=== PATIENT | female | born 1950 | race Caucasian/White ===

== ENCOUNTER 2017-05-25 13:02 | Observation (INO) | payer MEDICARE, MEDICAID ==
[~2017-05-25] VITALS: Ht 167.6 cm; Wt 67.0 kg
[2017-05-25] MEDS ORDERED: LEVOTHYROXIN100 MCG PO (13:24)
[2017-05-25 13:47] LABS: HEMATOCRIT 38.9 % (37.0-47.0); HEMOGLOBIN 12.7 g/dl (12.0-16.0); IMMATURE GRANULOCYTES 0.3 % (0.0-1.0); MEAN CELL VOLUME 91.3 fL CALC (80.0-100.0); MEAN CORPUSCULAR HGB 29.8 pG CALC (26.0-32.0); MEAN CORPUSCULAR HGB CONC 32.6 g/L CALC (32.0-36.0); NEUT# 5.35 thou/uL (2.00-7.15); RED BLOOD COUNT 4.26 mill/uL (4.20-5.60); RED CELL DISTRI WIDTH 12.6 % (11.5-15.5)
[2017-05-25 13:58] LABS: ANION GAP 14 (6-22 (CALC)); BUN 12 mg/dL (8-23); BUN/CREATININE RATIO 15 (12-20 (CALC)); CARBON DIOXIDE 26 mmol/l (22-30); CHLORIDE 106 mmol/l (95-108); CREATININE 0.8 mg/dL (0.5-1.0); GFR > 60 ML/MIN (>=60 (CALC)); GFR FOR AFR.AMER. > 60 ML/MIN (>=60 (CALC)); POTASSIUM 4.2 mmol/l (3.5-5.1); SODIUM 143 mmol/l (137-146)
[2017-05-25 15:32] VITALS: BP 141/56
[2017-05-25 16:11] LABS: URINE BILIRUBIN - DIPSTICK NEGATIVE (NEGATIVE); URINE BLOOD DIPSTICK SMALL (NEGATIVE); URINE COLOR YELLOW; URINE GLUCOSE - DIPSTICK NEGATIVE (NEGATIVE); URINE KETONE NEGATIVE (NEGATIVE); URINE LEUK ESTERASE TRACE (NEGATIVE); URINE NITRITE - DIPSTICK NEGATIVE (Negative); URINE PROTEIN - DIPSTICK NEGATIVE (NEG-TRACE); URINE UROBILINOGEN - DIPSTICK 0.2 E.U./dL (0.2)
[2017-05-25 16:12] LABS: URINE CLARITY CLEAR
[2017-05-25 16:52] LABS: URINE RBC 0-2 RBC/hpf (0-5); URINE SQUAMOUS EPITHELIAL CELL FEW EPI/hpf (0-FEW)
[2017-05-25 19:05] VITALS: BP 110/62
[2017-05-26] VITALS: BP 127/71
[2017-05-26 04:00] VITALS: BP 121/52
[2017-05-26 05:11] LABS: HEMATOCRIT 39.8 % (37.0-47.0); HEMOGLOBIN 13.2 g/dl (12.0-16.0); MEAN CELL VOLUME 90.7 fL CALC (80.0-100.0); MEAN CORPUSCULAR HGB 30.1 pG CALC (26.0-32.0); MEAN CORPUSCULAR HGB CONC 33.2 g/L CALC (32.0-36.0); RED BLOOD COUNT 4.39 mill/uL (4.20-5.60); RED CELL DISTRI WIDTH 12.4 % (11.5-15.5)
[2017-05-26 05:25] LABS: CHOLESTEROL HDL RATIO 4.7 (<4.4 (CALC))
[2017-05-26 07:35] VITALS: BP 120/55
[2017-05-26 12:03] VITALS: BP 117/69
[2017-05-26] MEDS ORDERED: PEPCID20 MG PO (12:09)
[2017-05-26] MEDS ORDERED: ASPIRIN ADULT L81 M2 PO (12:09)
== END 2017-05-26 13:51 | disposition home or self-care (01) ==
LOC: ED 13:02 → ED-I 14:08 → ED 14:32 → MS2 14:33
PROVIDERS: Family Medicine; ADMIT Internal Medicine; ATTEND Internal Medicine
DX: R07.89 Other chest pain (principal); E03.9 Hypothyroidism, unspecified; M19.90 Unspecified osteoarthritis, unspecified site; K21.9 Gastro-esophageal reflux disease without esophagitis; Z87.891 Personal history of nicotine dependence; Z80.3 Family history of malignant neoplasm of breast

== ENCOUNTER 2017-09-05 15:32 | Emergency (ER) | payer MEDICARE, MEDICAID ==
[~2017-09-05] VITALS: Ht 167.6 cm; Wt 67.0 kg
[~2017-09-05 15:32] MED LIST: ASPIRIN ADULT L81 M2 PO; LEVOTHYROXIN100 MCG PO; PEPCID20 MG PO
[2017-09-05] MEDS ORDERED: VISTARIL 50MG C50 M1 PO (16:46)
[2017-09-05] MEDS ORDERED: ATIVAN1 MG PO (16:46)
[2017-09-05 16:59] VITALS: BP 154/79
== END 2017-09-05 17:00 | disposition home or self-care (01) ==
LOC: ED 15:32
DX: F41.9 Anxiety disorder, unspecified (principal); E03.9 Hypothyroidism, unspecified; F17.210 Nicotine dependence, cigarettes, uncomplicated

== ENCOUNTER 2018-02-12 10:21 | Emergency (ER) | payer MEDICARE, MEDICAID ==
[~2018-02-12] VITALS: Ht 167.6 cm; Wt 65.0 kg
[~2018-02-12 10:21] MED LIST changes: +ATIVAN1 MG PO; +VISTARIL 50MG C50 M1 PO
[2018-02-12] MEDS ORDERED: AMOXICILLIN500 M2 PO (10:54)
[2018-02-12] MEDS ORDERED: MEDDOSEPAK PO (10:54)
[2018-02-12] MEDS ORDERED: CORTISPORIN OTI10 ML AD (10:54)
[2018-02-12 11:10] VITALS: BP 166/75
== END 2018-02-12 11:10 | disposition home or self-care (01) ==
LOC: ED 10:21
DX: L30.9 Dermatitis, unspecified (principal); H92.02 Otalgia, left ear; L93.0 Discoid lupus erythematosus; L29.9 Pruritus, unspecified; F17.210 Nicotine dependence, cigarettes, uncomplicated

== ENCOUNTER 2018-03-02 10:42 | Emergency (ER) | payer MEDICARE, MEDICAID ==
[~2018-03-02] VITALS: Ht 167.6 cm; Wt 70.0 kg
[~2018-03-02 10:42] MED LIST changes: +AMOXICILLIN500 M2 PO; +CORTISPORIN OTI10 ML AD; +MEDDOSEPAK PO
[2018-03-02 11:07] LABS: HEMATOCRIT 43.7 % (37.0-47.0); HEMOGLOBIN 14.7 g/dl (12.0-16.0); IMMATURE GRANULOCYTES 0.4 % (0.0-5.0); MEAN CELL VOLUME 89.9 fL CALC (80.0-100.0); MEAN CORPUSCULAR HGB 30.2 pG CALC (26.0-32.0); MEAN CORPUSCULAR HGB CONC 33.6 g/L CALC (32.0-36.0); NEUT# 6.54 thou/uL (2.00-7.15); RED BLOOD COUNT 4.86 mill/uL (4.20-5.60); RED CELL DISTRI WIDTH 12.6 % (11.5-15.5)
[2018-03-02 11:22] LABS: ALBUMIN 4.5 g/dL (3.2-5.0); ALKALINE PHOSPHATASE 118 u/l (38-126); ANION GAP 17 (6-22 (CALC)); BILIRUBIN, TOTAL 0.5 mg/dL (0.0-1.4); BUN 14 mg/dL (8-23); BUN/CREATININE RATIO 19 (12-20 (CALC)); CARBON DIOXIDE 24 mmol/l (22-30); CHLORIDE 104 mmol/l (95-108); CREATININE 0.7 mg/dL (0.5-1.0); GFR > 60 ML/MIN (>=60 (CALC)); GFR FOR AFR.AMER. > 60 ML/MIN (>=60 (CALC)); POTASSIUM 4.1 mmol/l (3.5-5.1); SGOT/AST 19 u/l (9-36); SODIUM 141 mmol/l (137-146); TOTAL PROTEIN 7.7 g/dL (6.3-8.2)
[2018-03-02 12:55] VITALS: BP 124/57
== END 2018-03-02 12:27 | disposition short-term general hospital (02) ==
LOC: ED 10:42
PROVIDERS: Family Medicine
DX: I60.9 Nontraumatic subarachnoid hemorrhage, unspecified (principal); E03.9 Hypothyroidism, unspecified; M32.9 Systemic lupus erythematosus, unspecified; F17.200 Nicotine dependence, unspecified, uncomplicated

== ENCOUNTER 2018-04-27 10:40 | Emergency (ER) | payer MEDICARE, MEDICAID ==
[~2018-04-27] VITALS: Ht 167.6 cm; Wt 82.0 kg
[2018-04-27] MEDS ORDERED: MIRTAZAPINE7.5 MG PO (11:04)
[2018-04-27] MEDS ORDERED: VALIUM2 MG PO (11:05)
[2018-04-27 12:13] LABS: HEMATOCRIT 41.7 % (37.0-47.0); HEMOGLOBIN 13.6 g/dl (12.0-16.0); IMMATURE GRANULOCYTES 0.4 % (0.0-5.0); MEAN CELL VOLUME 90.1 fL CALC (80.0-100.0); MEAN CORPUSCULAR HGB 29.4 pG CALC (26.0-32.0); MEAN CORPUSCULAR HGB CONC 32.6 g/L CALC (32.0-36.0); NEUT# 4.19 thou/uL (2.00-7.15); RED BLOOD COUNT 4.63 mill/uL (4.20-5.60); RED CELL DISTRI WIDTH 12.3 % (11.5-15.5)
[2018-04-27 12:36] LABS: ALBUMIN 4.4 g/dL (3.2-5.0); ALKALINE PHOSPHATASE 102 u/l (38-126); ANION GAP 14 (6-22 (CALC)); BILIRUBIN, TOTAL 0.8 mg/dL (0.0-1.4); BUN 13 mg/dL (8-23); BUN/CREATININE RATIO 20 (12-20 (CALC)); CARBON DIOXIDE 26 mmol/l (22-30); CHLORIDE 103 mmol/l (95-108); CPK 79 u/l (30-165); CREATININE 0.7 mg/dL (0.5-1.0); GFR > 60 ML/MIN (>=60 (CALC)); GFR FOR AFR.AMER. > 60 ML/MIN (>=60 (CALC)); POTASSIUM 4.5 mmol/l (3.5-5.1); SODIUM 138 mmol/l (137-146); TOTAL PROTEIN 7.9 g/dL (6.3-8.2)
[2018-04-27 12:39] LABS: SGOT/AST 47 u/l (9-36)
[2018-04-27 12:52] LABS: URINE BILIRUBIN - DIPSTICK NEGATIVE (NEGATIVE); URINE BLOOD DIPSTICK TRACE-INTACT (NEGATIVE); URINE COLOR YELLOW; URINE GLUCOSE - DIPSTICK NEGATIVE (NEGATIVE); URINE KETONE NEGATIVE (NEGATIVE); URINE LEUK ESTERASE NEGATIVE (NEGATIVE); URINE NITRITE - DIPSTICK NEGATIVE (Negative); URINE PROTEIN - DIPSTICK NEGATIVE (NEG-TRACE); URINE SPECIFIC GRAVITY 1.015
[2018-04-27] MEDS ORDERED: STERAPRED DS10 MG PO (13:40)
[2018-04-27 14:02] VITALS: BP 140/70
== END 2018-04-27 14:02 | disposition home or self-care (01) ==
LOC: ED 10:40
PROVIDERS: Family Medicine
DX: M32.9 Systemic lupus erythematosus, unspecified (principal); E03.9 Hypothyroidism, unspecified; M19.90 Unspecified osteoarthritis, unspecified site

== ENCOUNTER 2018-10-17 13:43 | Observation (INO) | payer MEDICARE, MEDICAID ==
[~2018-10-17] VITALS: Ht 167.6 cm; Wt 72.7 kg
[~2018-10-17 13:43] MED LIST changes: +MIRTAZAPINE7.5 MG PO; +STERAPRED DS10 MG PO; +VALIUM2 MG PO
[2018-10-17] MEDS ORDERED: NORVASC2.5 M1 PO (14:14)
[2018-10-17 14:34] LABS: HEMATOCRIT 41.4 % (37.0-47.0); HEMOGLOBIN 13.8 g/dl (12.0-16.0); IMMATURE GRANULOCYTES 0.3 % (0.0-5.0); MEAN CELL VOLUME 87.5 fL CALC (80.0-100.0); MEAN CORPUSCULAR HGB 29.2 pG CALC (26.0-32.0); MEAN CORPUSCULAR HGB CONC 33.3 g/L CALC (32.0-36.0); NEUT# 5.57 thou/uL (2.00-7.15); RED BLOOD COUNT 4.73 mill/uL (4.20-5.60); RED CELL DISTRI WIDTH 12.8 % (11.5-15.5)
[2018-10-17 14:42] LABS: ALBUMIN 4.3 g/dL (3.2-5.0); ALKALINE PHOSPHATASE 124 u/l (38-126); ANION GAP 13 (6-22 (CALC)); BILIRUBIN, TOTAL 0.5 mg/dL (0.0-1.4); BUN 14 mg/dL (8-23); BUN/CREATININE RATIO 18 (12-20 (CALC)); CARBON DIOXIDE 26 mmol/l (22-30); CHLORIDE 105 mmol/l (95-108); CREATININE 0.8 mg/dL (0.5-1.0); GFR > 60 ML/MIN (>=60 (CALC)); GFR FOR AFR.AMER. > 60 ML/MIN (>=60 (CALC)); POTASSIUM 3.7 mmol/l (3.5-5.1); SGOT/AST 24 u/l (9-36); SODIUM 140 mmol/l (137-146); TOTAL PROTEIN 7.8 g/dL (6.3-8.2)
[2018-10-17 18:20] VITALS: BP 150/58
[2018-10-17 19:59] VITALS: BP 126/64
[2018-10-18] VITALS: BP 111/54
[2018-10-18 04:30] VITALS: BP 136/74
[2018-10-18 06:24] LABS: CHOLESTEROL HDL RATIO 4.9 (<4.4 (CALC))
[2018-10-18 08:32] VITALS: BP 151/62
[2018-10-18] MEDS ORDERED: AMLODIPINE BESYL5 MG PO (11:14)
[2018-10-18] MEDS ORDERED: ZOFRAN4 MG/TAB PO (11:16)
[2018-10-18 11:40] VITALS: BP 159/71
== END 2018-10-18 12:43 | disposition home or self-care (01) ==
LOC: ED 13:43 → ED-I 14:54 → ED 15:10 → MS2 15:11
PROVIDERS: Emergency Medicine; ADMIT Internal Medicine; ATTEND Internal Medicine
DX: I10 Essential (primary) hypertension (principal); E03.9 Hypothyroidism, unspecified; M19.90 Unspecified osteoarthritis, unspecified site; K21.9 Gastro-esophageal reflux disease without esophagitis; F17.200 Nicotine dependence, unspecified, uncomplicated; Z86.79 Personal history of other diseases of the circulatory system; R07.9 Chest pain, unspecified

== ENCOUNTER 2019-03-16 15:22 | Emergency (ER) | payer MEDICARE, MEDICAID ==
[~2019-03-16 15:22] MED LIST changes: +AMLODIPINE BESYL5 MG PO; +NORVASC2.5 M1 PO; +ZOFRAN4 MG/TAB PO
[2019-03-17] MEDS ORDERED: BACTRIM DS1 TAB PO (00:54)
== END 2019-03-16 16:07 | disposition left against medical advice (07) ==
LOC: ED 15:22 → LWOBS 16:07 → ED 16:07
DX: Z91.19 Patient's noncompliance with other medical treatment and regimen (principal)

== ENCOUNTER 2019-03-16 20:18 | Emergency (ER) | payer MEDICARE, MEDICAID ==
[~2019-03-16] VITALS: Ht 167.6 cm; Wt 73.0 kg
[2019-03-16 22:44] LABS: URINE BLOOD DIPSTICK MODERATE (NEGATIVE); URINE COLOR YELLOW; URINE GLUCOSE - DIPSTICK NEGATIVE (NEGATIVE); URINE KETONE TRACE mg/dL (NEGATIVE); URINE PH 5.5 (4.5-8.0); URINE PROTEIN - DIPSTICK NEGATIVE (NEG-TRACE); URINE SPECIFIC GRAVITY 1.025
[2019-03-16 22:44] LABS: HEMATOCRIT 38.1 % (37.0-47.0); HEMOGLOBIN 12.8 g/dl (12.0-16.0); IMMATURE GRANULOCYTES 0.2 % (0.0-5.0); MEAN CELL VOLUME 87.4 fL CALC (80.0-100.0); MEAN CORPUSCULAR HGB 29.4 pG CALC (26.0-32.0); MEAN CORPUSCULAR HGB CONC 33.6 g/L CALC (32.0-36.0); NEUT# 2.14 thou/uL (2.00-7.15); RED BLOOD COUNT 4.36 mill/uL (4.20-5.60); RED CELL DISTRI WIDTH 12.9 % (11.5-15.5)
[2019-03-16 22:54] LABS: URINE LEUK ESTERASE SMALL (NEGATIVE)
[2019-03-16 22:59] LABS: URINE BILIRUBIN - DIPSTICK NEGATIVE (NEGATIVE)
[2019-03-16 23:00] LABS: ALBUMIN 3.8 g/dL (3.2-5.0); ALKALINE PHOSPHATASE 101 u/l (38-126); ANION GAP 14 (6-22 (CALC)); BILIRUBIN, TOTAL 0.4 mg/dL (0.0-1.4); BUN 16 mg/dL (8-23); BUN/CREATININE RATIO 21 (12-20 (CALC)); CARBON DIOXIDE 24 mmol/l (22-30); CHLORIDE 102 mmol/l (95-108); CREATININE 0.7 mg/dL (0.5-1.0); GFR > 60 ML/MIN (>=60 (CALC)); GFR FOR AFR.AMER. > 60 ML/MIN (>=60 (CALC)); POTASSIUM 3.7 mmol/l (3.5-5.1); SGOT/AST 30 u/l (9-36); SODIUM 136 mmol/l (137-146); TOTAL PROTEIN 7.1 g/dL (6.3-8.2)
[2019-03-16 23:08] LABS: URINE NITRITE - DIPSTICK NEGATIVE (Negative)
[2019-03-16 23:10] LABS: URINE BACTERIA FEW hpf; URINE EPITHELIAL CELLS MODERATE EPI/hpf (0-FEW)
[2019-03-17] MEDS ORDERED: BACTRIM DS1 TAB PO (00:54)
[2019-03-17 01:26] VITALS: BP 118/70
== END 2019-03-17 01:26 | disposition home or self-care (01) ==
LOC: ED 20:18
PROVIDERS: Emergency Medicine
DX: N39.0 Urinary tract infection, site not specified (principal); J06.9 Acute upper respiratory infection, unspecified; I10 Essential (primary) hypertension
CPT/HCPCS: Q9967

== ENCOUNTER 2020-09-25 15:26 | Emergency (ER) | payer MEDICARE, MEDICAID ==
[~2020-09-25] VITALS: Ht 167.6 cm; Wt 89.0 kg
[~2020-09-25 15:26] MED LIST changes: +BACTRIM DS1 TAB PO
[2020-09-25 16:06] LABS: GFR > 60 ML/MIN (>=60 (CALC)); GFR FOR AFR.AMER. > 60 ML/MIN (>=60 (CALC))
[2020-09-25 16:08] LABS: HEMATOCRIT 41.7 % (37.0-47.0); HEMOGLOBIN 13.6 g/dl (12.0-16.0); IMMATURE GRANULOCYTES 0.1 % (0.0-5.0); MEAN CELL VOLUME 91.6 fL CALC (80.0-100.0); MEAN CORPUSCULAR HGB 29.9 pG CALC (26.0-32.0); MEAN CORPUSCULAR HGB CONC 32.6 g/dL CAL (32.0-36.0); NEUT# 5.63 thou/uL (2.00-7.15); RED BLOOD COUNT 4.55 mill/uL (4.20-5.60); RED CELL DISTRI WIDTH 12.9 % (11.5-15.5)
[2020-09-25 16:25] LABS: ALBUMIN 4.1 g/dL (3.2-5.0); ALKALINE PHOSPHATASE 74 u/l (38-126); ANION GAP 11 (6-22 (CALC)); BILIRUBIN, TOTAL 0.3 mg/dL (0.0-1.4); BUN 15 mg/dL (8-23); BUN/CREATININE RATIO 20 (12-20 (CALC)); CARBON DIOXIDE 27 mmol/l (22-30); CHLORIDE 103 mmol/l (95-108); CREATININE 0.8 mg/dL (0.5-1.0); GFR > 60 ML/MIN (>=60 (CALC)); GFR FOR AFR.AMER. > 60 ML/MIN (>=60 (CALC)); SGOT/AST 21 u/l (9-36); SODIUM 137 mmol/l (137-146); TOTAL PROTEIN 7.5 g/dL (6.3-8.2)
[2020-09-25 16:26] LABS: PROTHROMBIN TIME 10.5 SECONDS (9.0-12.5)
[2020-09-25 17:21] LABS: URINE BILIRUBIN - DIPSTICK NEGATIVE (NEGATIVE); URINE BLOOD DIPSTICK TRACE-LYSED (NEGATIVE); URINE COLOR YELLOW; URINE GLUCOSE - DIPSTICK NEGATIVE (NEGATIVE); URINE KETONE NEGATIVE (NEGATIVE); URINE LEUK ESTERASE NEGATIVE (NEGATIVE); URINE PROTEIN - DIPSTICK NEGATIVE (NEG-TRACE); URINE SPECIFIC GRAVITY 1.025
[2020-09-25 17:22] LABS: URINE NITRITE - DIPSTICK NEGATIVE (Negative)
[2020-09-25] MEDS ORDERED: DOXYCYCL HYC100 M4 PO (17:57)
[2020-09-25 19:14] VITALS: BP 163/67
== END 2020-09-25 19:18 | disposition left against medical advice (07) ==
LOC: ED 15:26
PROVIDERS: Family Medicine
DX: G45.9 Transient cerebral ischemic attack, unspecified (principal); J18.9 Pneumonia, unspecified organism; I77.1 Stricture of artery; I10 Essential (primary) hypertension; M32.9 Systemic lupus erythematosus, unspecified; E03.9 Hypothyroidism, unspecified; F17.200 Nicotine dependence, unspecified, uncomplicated; Z91.19 Patient's noncompliance with other medical treatment and regimen; Z86.79 Personal history of other diseases of the circulatory system; Z20.822 Contact with and (suspected) exposure to COVID-19
CPT/HCPCS: Q9967

== ENCOUNTER 2020-10-02 23:06 | Observation (INO) | payer MEDICARE, MEDICAID ==
[~2020-10-02] VITALS: Ht 167.6 cm; Wt 66.0 kg
[~2020-10-02 23:06] MED LIST changes: +DOXYCYCL HYC100 M4 PO
--- NOTE | 2020-10-02 23:06 | NUR ---
PT AMBUALTED TO ROOM WITH STEADY GAIT FOR BEDSIDE TRIAGE.
[2020-10-02 23:54] LABS: HEMATOCRIT 43.6 % (37.0-47.0); HEMOGLOBIN 14.3 g/dl (12.0-16.0); IMMATURE GRANULOCYTES 0.6 % (0.0-5.0); MEAN CELL VOLUME 90.5 fL CALC (80.0-100.0); MEAN CORPUSCULAR HGB 29.7 pG CALC (26.0-32.0); MEAN CORPUSCULAR HGB CONC 32.8 g/dL CAL (32.0-36.0); NEUT# 6.58 thou/uL (2.00-7.15); RED BLOOD COUNT 4.82 mill/uL (4.20-5.60); RED CELL DISTRI WIDTH 12.8 % (11.5-15.5)
[2020-10-03] VITALS (9 sets, daily range): BP systolic 98–134; BP diastolic 57–71
[2020-10-03 00:16] LABS: D-DIMER 0.4 mg/L (0.19-0.60)
[2020-10-03 00:18] LABS: ACT PARTIAL THROMBO TIME 24.6 SECONDS (20.0-32.5); PROTHROMBIN TIME 10.3 SECONDS (9.0-12.5)
[2020-10-03 00:19] LABS: ALBUMIN 4.3 g/dL (3.2-5.0); ALKALINE PHOSPHATASE 98 u/l (38-126); AMYLASE 50 u/l (30-110); ANION GAP 13 (6-22 (CALC)); BILIRUBIN, TOTAL 0.3 mg/dL (0.0-1.4); BUN 13 mg/dL (8-23); BUN/CREATININE RATIO 19 (12-20 (CALC)); CARBON DIOXIDE 28 mmol/l (22-30); CHLORIDE 101 mmol/l (95-108); CREATININE 0.7 mg/dL (0.5-1.0); GFR > 60 ML/MIN (>=60 (CALC)); GFR FOR AFR.AMER. > 60 ML/MIN (>=60 (CALC)); LIPASE 64 u/l (23-300); POTASSIUM 3.9 mmol/l (3.5-5.1); SGOT/AST 20 u/l (9-36); SODIUM 138 mmol/l (137-146); TOTAL PROTEIN 7.9 g/dL (6.3-8.2)
--- NOTE | 2020-10-03 00:19 | NUR ---
PT RESTING TOOK MEDICATIONS PRESCRIBED, CALL PIMENTEL WITHIN REACH COMFORT MEASURES PROVIDED
[2020-10-03] MEDS ORDERED: NORVASC PO (00:25)
[2020-10-03 00:31] LABS: MYOGLOBIN 15 ng/mL (0 - 62)
--- NOTE | 2020-10-03 01:05 | NUR ---
REPORT CALLED TO WAI SIMEON ON MED SURG,
--- NOTE | 2020-10-03 01:21 | NUR ---
PT TRANSPORTED TO MED SURG VIA WHEELCHAIR, ALL BELONGING SENT WITH PT RM 273 AND TELE [address]OX [id number] ASSIGNED AND ON PT. BELONGINGS RECORD COMPLETED
--- NOTE | 2020-10-03 01:22 | NUR ---
PT RECEIVED FROM ED TO ROOM 273. ARRIVES VIA WC ACCOMPANIED BY CLAIRE SIMEON. PT AMBULATORY TO BED. GAIT UNSTEADY. PT DENIES PAIN AT THIS TIME. ORIENTED TO UNIT, ROOM, CALL PIMENTEL, LIGHTS, TV. ICE WATER PROVIDED. CALL PIMENTEL WITHIN REACH. AGREES TO CALL PRN.
--- NOTE | 2020-10-03 02:00 | NUR ---
PHYSICAL ASSESMENT COMPLETE. PT CURRENTLY DENIES PAIN OR DISCOMFORT. SCHEDULED MEDICATIONS AND PRN MEDICATION ADMINISTERED, SEE E-MAR. PT DENIES ANY NEEDS AT THIS TIME. PLAN OF CARE REVIEWED, PT DENIES QUESTIONS, VERBALIZES UNDERSTANDING. ITEMS WITHIN REACH, BED LOCKED IN LOW POSITION W/ BEDRAILS UP X2. CALL PIMENTEL WITHIN REACH, AGREES TO CALL PRN.
--- NOTE | 2020-10-03 04:10 | NUR ---
PT RESTING IN BED, NO SIGNS OF DISTRESS NOTED, RESP EVEN AND UNLABORED. PT VOICES NO NEEDS OR COMPLAINTS AT THIS TIME. CALL LIGHT IN REACH, CONTINUE TO MONITOR.
--- NOTE | 2020-10-03 07:00 | NUR ---
SHIFT CHANGE REPORT, PT SLEEPING BUT AROUSES TO VERBAL STIMULI, ORIENTED, DENIES PAIN/DISCOMFORT, TELE MONITOR IN PLACE, CALL PIMENTEL IN REACH AND BED LOCKED IN LOWEST POSITION.
--- NOTE | 2020-10-03 08:01 | NUR ---
PT JUST C/O DIZZINESS AND HEAVINESS N HEAD AND CHEST PRESSURE, SHE HAD JUST SAT UP AT BEDSIDE FOR MEAL, VS WERE WNL BUT WITH SLIGHTLY LOW BP, FIRE SPRINKLER SERVICE TECHNICIAN REPORTED NORMAL SR HR @ 70. PT STATES THIS EPISODE HAS BEE HAPPENING TO HER OVER THE LAST WEEK, SHE DENIED FALLING BUT STATED SHE SOMETIMES HAVE TO HOLD ON TO FURNITURE TO AVOID FALLS. INSIDE SALES RECRUITER NOTIFIED OF CONDITION, ADVISED TO PERFORM ORTHOSTATIC BP'S, WILL CONTINUE TO MONITOR.
[2020-10-03 09:17] LABS: CHOLESTEROL HDL RATIO 5.9 (<4.4 (CALC)); MAGNESIUM 1.9 mg/dL (1.6-2.3)
[2020-10-03] MEDS ORDERED: DOXYCYCL HYC100 M4 PO (10:13)
[2020-10-03] MEDS ORDERED: IBUPROFEN600 MG PO (10:15)
--- NOTE | 2020-10-03 12:30 | NUR ---
REPORT RECEIVED FROM CAILIN CHRISTIE
--- NOTE | 2020-10-03 15:25 | NUR ---
PT RESTING IN SEMI FOWLERS POSITION;RESPIRATIONS EVEN AND UNLABORED ON RA;PT DENIES ANY CURRENT PAIN OR DISCOMFORTS;TELE MONITORING IN PLACE;IV SITE PATENT;SNACKS PROVIDED PER REQUEST;PT ENCOURAGED TO CALL FOR ASSISTANCE IF NEEDED;FALL PRECAUTIONS IN PLACE WITH CALL LIGHT IN REACH;WILL CONTINUE TO MONITOR
--- NOTE | 2020-10-03 20:20 | NUR ---
PATIENT IS ALERT AND ORIENTED X3. ABLE TO MAKE NEEDS KNOWN. RESPIRATINS NONLABORED. ON TELEMETRY. HR REGULAR. DENEIS PAIN OR DISCOMFORT AT THIS TIME. ASSESSMENT COMPLETE AND CHARTED. BED IN LOW POSITION. CALL LIGHT WITHIN REACH.
--- NOTE | 2020-10-03 22:00 | NUR ---
AT 2044 PATIENT CALL NURSE TO ROOM. FEELING DIZZY, LIGHTHEADED, SWEATY AND CHEST TIGHTNESS. PATIENT REPORTS HAVING EPISODES BEFORE. MD NOTIFIED, NEW ORDERS RECEIVED. SYMPTOMS RESOLVED. BED IN LOW POSITION. CALL LIGHT WITHIN REACH.
--- NOTE | 2020-10-04 00:30 | NUR ---
PATIENT IN NO ACUTE DISTRESS. BED IN LOW POSITION. CALL LIGHT WITHIN REACH.
[2020-10-04 00:39] VITALS: BP 133/64
[2020-10-04 05:02] VITALS: BP 120/66
[2020-10-04 05:31] LABS: HEMATOCRIT 41.4 % (37.0-47.0); HEMOGLOBIN 13.5 g/dl (12.0-16.0); MEAN CORPUSCULAR HGB 29.7 pG CALC (26.0-32.0); MEAN CORPUSCULAR HGB CONC 32.6 g/dL CAL (32.0-36.0); RED BLOOD COUNT 4.55 mill/uL (4.20-5.60); RED CELL DISTRI WIDTH 12.8 % (11.5-15.5)
[2020-10-04 05:38] LABS: ANION GAP 11 (6-22 (CALC)); BUN 15 mg/dL (8-23); BUN/CREATININE RATIO 20 (12-20 (CALC)); CARBON DIOXIDE 24 mmol/l (22-30); CHLORIDE 105 mmol/l (95-108); CREATININE 0.7 mg/dL (0.5-1.0); GFR > 60 ML/MIN (>=60 (CALC)); GFR FOR AFR.AMER. > 60 ML/MIN (>=60 (CALC)); POTASSIUM 3.9 mmol/l (3.5-5.1); SODIUM 136 mmol/l (137-146)
[2020-10-04 07:25] VITALS: BP 148/61
--- NOTE | 2020-10-04 08:00 | NUR ---
PT SLEEP UPON ENTERING ROOM. VITALS AND ASSESSMENT COMPLETED. PT IS ALERT AND ORIENTED. S1 AND S2 HEARD. LUNG SOUNDS CLEAR. BOWEL SOUNDS ACTIVE IN ALL 4 QUADRANTS. PEDAL PULSES EQUALLY STRONG BILATERALLY. PT'S IV PATENT AND HEALTHY. NO DISTRESS NOTED.
--- NOTE | 2020-10-04 09:02 | NUR ---
TAKEN BY STAFF TO ULTRASOUND IN STABLE CONDITION. NO SISTRESS NOTED.
[2020-10-04] MEDS ORDERED: ATORVASTATIN CA20 MG PO (09:54)
[2020-10-04] MEDS ORDERED: TRI-BUFF ASA325 M2 PO (09:58)
[2020-10-04] MEDS ORDERED: XANAX0.25 MG PO (09:58)
[2020-10-04 10:40] VITALS: BP 140/60
--- NOTE | 2020-10-04 12:55 | NUR ---
Discharge instructions given. Patient verbalizes understanding of same. Discharged in stable condition via Wheelchair to Home with staff. All belongings sent with pt.
== END 2020-10-04 15:05 | disposition home or self-care (01) ==
LOC: ED 23:06 → ED-I 10-03 00:36 → ED 10-03 00:45 → MS2 10-03 00:46
PROVIDERS: Family Medicine; Nurse Practitioner; ADMIT Internal Medicine; ATTEND Internal Medicine
DX: R07.9 Chest pain, unspecified (principal); G45.9 Transient cerebral ischemic attack, unspecified; I10 Essential (primary) hypertension; E03.9 Hypothyroidism, unspecified; I77.1 Stricture of artery; F41.9 Anxiety disorder, unspecified; F17.200 Nicotine dependence, unspecified, uncomplicated; Z86.79 Personal history of other diseases of the circulatory system; Z20.822 Contact with and (suspected) exposure to COVID-19
CPT/HCPCS: G0378; J1650

== ENCOUNTER 2021-07-06 12:16 | Emergency (ER) | payer MEDICARE, MEDICAID ==
[~2021-07-06] VITALS: Ht 167.6 cm; Wt 83.0 kg
[2021-07-06] VITALS (19 sets, daily range): BP systolic 89–154; BP diastolic 46–82
[~2021-07-06 12:16] MED LIST changes: +ATORVASTATIN CA20 MG PO; +IBUPROFEN600 MG PO; +NORVASC PO; +TRI-BUFF ASA325 M2 PO; +XANAX0.25 MG PO
[2021-07-06 12:54] LABS: HEMOGLOBIN 13.6 g/dl (12.0-16.0); IMMATURE GRANULOCYTES 0.5 % (0.0-5.0); MEAN CELL VOLUME 89.5 fL CALC (80.0-100.0); MEAN CORPUSCULAR HGB 29.7 pG CALC (26.0-32.0); MEAN CORPUSCULAR HGB CONC 33.2 g/dL CAL (32.0-36.0); NEUT# 4.11 thou/uL (2.00-7.15); RED BLOOD COUNT 4.58 mill/uL (4.20-5.60); RED CELL DISTRI WIDTH 12.8 % (11.5-15.5)
[2021-07-06 13:33] LABS: ALKALINE PHOSPHATASE 113 u/l (38-126); ANION GAP 11 (6-22 (CALC)); BILIRUBIN, TOTAL 0.4 mg/dL (0.0-1.4); BUN 13 mg/dL (8-23); BUN/CREATININE RATIO 16 (12-20 (CALC)); CARBON DIOXIDE 26 mmol/l (22-30); CHLORIDE 105 mmol/l (95-108); CREATININE 0.8 mg/dL (0.5-1.0); GFR > 60 ML/MIN (>=60 (CALC)); GFR FOR AFR.AMER. > 60 ML/MIN (>=60 (CALC)); POTASSIUM 4.2 mmol/l (3.5-5.1); SGOT/AST 24 u/l (9-36); SODIUM 138 mmol/l (137-146); TOTAL PROTEIN 7.4 g/dL (6.3-8.2)
[2021-07-06] MEDS ORDERED: HYDROCO/APAP1 TA9 PO (13:50)
[2021-07-06] MEDS ORDERED: VISTARIL 50MG C50 M1 PO (13:50)
== END 2021-07-06 15:06 | disposition home or self-care (01) ==
LOC: ED 12:16
PROVIDERS: Family Medicine
DX: U07.1 COVID-19 (principal); R50.9 Fever, unspecified; R52 Pain, unspecified; R05.9 Cough, unspecified; M32.9 Systemic lupus erythematosus, unspecified; I10 Essential (primary) hypertension; F17.200 Nicotine dependence, unspecified, uncomplicated

== ENCOUNTER 2021-08-15 20:46 | Emergency (ER) | payer MEDICARE, MEDICAID ==
[~2021-08-15] VITALS: Ht 167.6 cm; Wt 78.0 kg
[2021-08-15] VITALS (9 sets, daily range): BP systolic 71–130; BP diastolic 40–77
[~2021-08-15 20:46] MED LIST changes: +HYDROCO/APAP1 TA9 PO
[2021-08-15 21:34] LABS: HEMATOCRIT 40.4 % (37.0-47.0); HEMOGLOBIN 12.8 g/dl (12.0-16.0); IMMATURE GRANULOCYTES 1.5 % (0.0-5.0); MEAN CELL VOLUME 93.1 fL CALC (80.0-100.0); MEAN CORPUSCULAR HGB 29.5 pG CALC (26.0-32.0); MEAN CORPUSCULAR HGB CONC 31.7 g/dL CAL (32.0-36.0); NEUT# 9.71 thou/uL (2.00-7.15); RED BLOOD COUNT 4.34 mill/uL (4.20-5.60); RED CELL DISTRI WIDTH 13.4 % (11.5-15.5)
[2021-08-15 21:35] LABS: URINE BILIRUBIN - DIPSTICK NEGATIVE (NEGATIVE); URINE BLOOD DIPSTICK TRACE-INTACT (NEGATIVE); URINE COLOR YELLOW; URINE GLUCOSE - DIPSTICK NEGATIVE (NEGATIVE); URINE KETONE NEGATIVE (NEGATIVE); URINE LEUK ESTERASE NEGATIVE (NEGATIVE); URINE PH 7.5 (4.5-8.0); URINE PROTEIN - DIPSTICK NEGATIVE (NEG-TRACE); URINE SPECIFIC GRAVITY 1.015
[2021-08-15 21:44] LABS: URINE NITRITE - DIPSTICK NEGATIVE (Negative)
[2021-08-15 21:53] LABS: ALBUMIN 3.4 g/dL (3.2-5.0); ALKALINE PHOSPHATASE 100 u/l (38-126); AMYLASE 45 u/l (30-110); ANION GAP 12 (6-22 (CALC)); BILIRUBIN, TOTAL 0.4 mg/dL (0.0-1.4); BUN 20 mg/dL (8-23); BUN/CREATININE RATIO 21 (12-20 (CALC)); CARBON DIOXIDE 27 mmol/l (22-30); CHLORIDE 101 mmol/l (95-108); CREATININE 0.9 mg/dL (0.5-1.0); GFR > 60 ML/MIN (>=60 (CALC)); GFR FOR AFR.AMER. > 60 ML/MIN (>=60 (CALC)); LIPASE 55 u/l (23-300); POTASSIUM 4.1 mmol/l (3.5-5.1); SGOT/AST 14 u/l (9-36); SODIUM 136 mmol/l (137-146); TOTAL PROTEIN 6.2 g/dL (6.3-8.2)
[2021-08-15 22:05] LABS: MYOGLOBIN 17 ng/mL (0 - 62)
[2021-08-15] MEDS ORDERED: MIRALAX17 GM PO (23:05)
== END 2021-08-15 23:25 | disposition home or self-care (01) ==
LOC: ED 20:46
PROVIDERS: Emergency Medicine
DX: B34.9 Viral infection, unspecified (principal); K59.00 Constipation, unspecified; I10 Essential (primary) hypertension; F17.200 Nicotine dependence, unspecified, uncomplicated; Z20.822 Contact with and (suspected) exposure to COVID-19
CPT/HCPCS: Q9967

== ENCOUNTER 2024-06-10 19:31 | Emergency (ER) | payer MEDICARE, MEDICAID ==
[~2024-06-10] VITALS: Ht 167.6 cm; Wt 72.0 kg
[~2024-06-10 19:31] MED LIST changes: +MIRALAX17 GM PO; +ZOLOFT25 MG PO
[2024-06-10 20:17] LABS: URINE BILIRUBIN - DIPSTICK Negative (NEGATIVE); URINE BLOOD DIPSTICK Small (NEGATIVE); URINE GLUCOSE - DIPSTICK Negative (NEGATIVE); URINE KETONE Negative (NEGATIVE); URINE LEUK ESTERASE Trace (NEGATIVE); URINE NITRITE - DIPSTICK Negative (Negative); URINE PH 5.5 (4.5-8.0); URINE PROTEIN - DIPSTICK Negative (NEG-TRACE); URINE UROBILINOGEN - DIPSTICK 0.2 E.U./dL (0.2)
[2024-06-10 20:17] LABS: BASO% 0.3 % (0-3); EOS% 1.6 % (0-8); HEMATOCRIT 41.7 % (37.0-47.0); HEMOGLOBIN 13.8 g/dl (12.0-16.0); IMMATURE GRANULOCYTES 0.3 % (0.0-5.0); MEAN CELL VOLUME 91.2 fL CALC (80.0-100.0); MEAN CORPUSCULAR HGB 30.2 pG CALC (26.0-32.0); MEAN CORPUSCULAR HGB CONC 33.1 g/dL CAL (32.0-36.0); MONO% 11.5 % (2-13); NEUT# 7.08 thou/uL (2.00-7.15); NEUT% 62.3 % (42-76); RED BLOOD COUNT 4.57 mill/uL (4.20-5.60); RED CELL DISTRI WIDTH 13.4 % (11.5-15.5)
[2024-06-10 20:18] LABS: URINE COLOR Light yellow
[2024-06-10 20:25] LABS: URINE BACTERIA FEW hpf; URINE SQUAMOUS EPITHELIAL CELL FEW EPI/hpf (0-FEW); URINE WBC 0-2 WBC/hpf (0-5)
[2024-06-10 20:31] LABS: ALBUMIN 4.4 g/dL (3.2-5.0); CREATININE 0.8 mg/dL (0.5-1.0); POTASSIUM 3.8 mmol/l (3.5-5.1); TOTAL PROTEIN 7.6 g/dL (6.3-8.2)
[2024-06-10 20:35] LABS: BILIRUBIN, TOTAL 0.5 mg/dL (0.02-1.3)
[2024-06-10] MEDS ORDERED: AMOXICILLIN & POT CLAVULANATE 875 MG/TAB PO ONE (21:45)
[2024-06-10 22:10] VITALS: BP 155/76
[2024-06-11] MEDS ORDERED: AMOX/K CLAV875 M1 PO (20:16)
[2024-06-11] MEDS ORDERED: DECADRON4 MG PO (20:16)
== END 2024-06-10 22:10 | disposition home or self-care (01) ==
LOC: ED 19:31
PROVIDERS: Family Medicine
DX: B34.9 Viral infection, unspecified (principal); K52.9 Noninfective gastroenteritis and colitis, unspecified; I10 Essential (primary) hypertension; F17.210 Nicotine dependence, cigarettes, uncomplicated; Z20.822 Contact with and (suspected) exposure to COVID-19